=== PATIENT | male | born 1950 | race Caucasian/White ===

== ENCOUNTER 2021-03-13 10:55 | Emergency (ER) | payer OTHER, MEDICARE, BC ==
[2021-03-13] MEDS ORDERED: Sodium Chloride 0.9% 1,000 ML IV SCH (11:30)
--- NOTE | 2021-03-13 11:36 | EDM.PDOC ---
ED HPI GENERAL MEDICAL PROBLEM - General Chief Complaint: Neuro Symptoms/Deficits Stated Complaint: SLURRED SPEECH, LOW BLOOD PRESSURE Time Seen by Provider: 03/13/21 11:30 Source of Information: Reports: Patient, Family (Daughter and spouse.) History Limitations: Reports: Other (Patient does have impaired ability to answer questions and has dysarthric speech. Not truly any expressive aphasia.) - History of Present Illness INITIAL COMMENTS - FREE TEXT/NARRATIVE: 70-year-old male who is known to be a type II diabetic controlled with oral medications and history of hypertension and coronary artery disease having had a stent placement in the past. He remains on Plavix and antihypertensive medications. Patient has not noticed any difficulties with speech today until spoke with his grandson around 0800 hrs. and it was appreciated that his speech was somewhat garbled or dysarthric. Speech was slurred like he had been drinking. This seems to come and go throughout the morning. Once his daughter recognized the symptoms of possible strokes she brought him to the hospital. Blood sugar upon arrival in the ED was 176. Blood pressure is good at 126/70. Patient denies any changes in his visual acuity denies any headache no recent falls or closed head injuries. Family appreciated that he had trouble buttoning up his pants this morning. He is right-hand dominant. No troubles with gait. He did not drive a motor vehicle this morning. Onset: Today, Unknown/Unsure (Apparently he awoke with symptoms of dysarthria but it was not recognized until around 0800 hrs. this morning. Therefore we cannot clarify when he started to have dysarthric speech.) Onset Date: 03/13/21 Onset Time: 08:00 (Symptoms were first noticed by his grandson at 0800 hrs.) Duration: Hour(s):, Waxing/Waning Location: Reports: Other (Dysarthric speech.) Quality: Reports: Other (I merrily dysarthric speech. But family also recognized he had trouble buttoning up his pants this morning like he had some difficulty with fine motor coordination.) Severity: Mild Improves with: Reports: None Worsens with: Reports: None Context: Denies: Activity, Exercise, Lifting, Sick Contact, Trauma, Other Associated Symptoms: Denies: No Other Symptoms, Confusion, Chest Pain, Cough, cough w sputum, Diaphoresis, Fever/Chills, Headaches, Loss of Appetite, Nausea/Vomiting, Rash, Seizure, Shortness of Breath, Weakness Treatments COKE LOADER: Reports: Other (see below) (None.) - Related Data Allergies Allergy/AdvReac Type Severity Reaction Status Date / Time No Known Allergies Allergy Verified 03/13/21 11:12 Home Meds: Home Meds Cholecalciferol (Vitamin D3) [Vitamin D-3] 1,000 unit PO DAILY 05/02/14 [History] Colesevelam [Welchol] 1,875 mg PO BID 05/02/14 [History] Flaxseed Oil [Flax Oil] 1,300 mg PO DAILY 05/02/14 [History] Furosemide [Lasix] 40 mg PO DAILY 05/02/14 [History] Glucosamine [Glucosamine Sulfate] 1,500 mg PO DAILY 05/02/14 [History] Metoprolol Tartrate [Lopressor] 50 mg PO BID 05/02/14 [History] Rosuvastatin [Crestor] 10 mg PO DAILY 05/02/14 [History] glipiZIDE [Glipizide] 10 mg PO BID 05/02/14 [History] Acalabrutinib [Calquence] 100 mg PO BID 03/13/21 [History] Albuterol Sulfate 1 ampule IH Q6H PRN 03/13/21 [History] Albuterol Sulfate [Proair Digihaler] 2 puff IH Q6H PRN 03/13/21 [History] Apixaban [Eliquis] 5 mg PO BID 03/13/21 [History] Budesonide/Formoterol [Symbicort 160-4.5 MCG] 1 puff INH DAILY 03/13/21 [History] Clopidogrel [Plavix] 75 mg PO DAILY 03/13/21 [History] Famotidine 20 mg PO DAILY 03/13/21 [History] Insulin Aspart [NovoLOG] 7 unit SQ 1200 03/13/21 [History] Insulin Aspart [NovoLOG] 10 unit SQ BID 03/13/21 [History] Insulin Glarg,Human.Rec.Analog [Lantus] 22 unit SUBCUT DAILY 03/13/21 [History] Montelukast [Singulair] 10 mg PO DAILY 03/13/21 [History] Semaglutide [Ozempic] 1.5 ml SQ HOGUE 03/13/21 [History] Sodium Bicarbonate 1,300 mg PO DAILY 03/13/21 [History] Sodium Zirconium Cyclosilicate [Lokelma] 10 gm PO DAILY 03/13/21 [History] Tiotropium [Spiriva] 2 puff INH DAILY 03/13/21 [History] Vardenafil HCl 20 mg PO DAILY 03/13/21 [History] metFORMIN [Glucophage XR] 500 mg PO DAILY 03/13/21 [History] Past Medical History HEENT History: Reports: Other (See Below) Other HEENT History: wisdom teeth removed Cardiovascular History: Reports: High Cholesterol, Hypertension, Stents ([address] Last one was placed in March last year the one prior was a year and a half before that. No myocardial infarction apparently occurred.), Other (See Below) Endocrine/Metabolic History: Reports: Diabetes, Type II (Patient is been a type II diabetic for about 8 to 9 years.), Obesity/BMI 30+ Hematologic History: Reports: Other (See Below) (Patient does have CML. He has had it for about 12 years.) Oncologic (Cancer) History: Reports: Leukemia (Patient has CLL by history for the last 12 years. His oncologist is Dr. Torrez) - Infectious Disease History Infectious Disease History: Reports: Chicken Pox, Measles, Rubella - Past Surgical History HEENT Surgical History: Reports: Oral Surgery Cardiovascular Surgical History: Reports: Coronary Artery Bypass, Coronary Artery Stent Musculoskeletal Surgical History: Reports: ORIF Other Musculoskeletal Surgeries/Procedures:: bilateral ankles Social & Family History - Family History Family Medical History: No Pertinent Family History - Tobacco Use Tobacco Use Status *Q: Never Tobacco User - Recreational Drug Use Recreational Drug Use: No - Living Situation & Occupation Living situation: Reports: Occupation: Employed [employer] - Review of Systems Review Of Systems: See Below (Self-employed) Constitutional: Denies: Fever, Chills, Malaise, Weakness, Fatigue, Decreased Appetite, Weight Loss HEENT: Reports: Glasses (Only for reading.) Respiratory: Reports: Shortness of Breath, Cough. Denies: Wheezing, Pleuritic Chest Pain (No shortness of breath.), Sputum, Hemoptysis (Rare cough) Cardiovascular: Reports: Dyspnea on Exertion, Edema (Times. Sometimes in his feet.), Lightheadedness (Sometimes he believes from low heart rate and low blood pressure), Palpitations (Occasional aware of palpitations.). Denies: Chest P ain, Blood Pressure Problem, Claudication, Orthopnea Endocrine: Reports: Fatigue GI/Abdominal: Reports: No Symptoms : Reports: Frequency, Other (. X2 or 3.) Musculoskeletal: Reports: Back Pain Skin: Reports: Bruising (Bruises easily as he is on Plavix.) Neurological: Reports: Other (Dysarthric speech this morning. Apparently also having trouble buttoning up his pants.). Denies: Confusion, Dizziness, Headache, Numbness, Pre-Existing Deficit, Seizure, Syncope, Tingling, Tremors, Trouble Speaking, Difficulty Walking, Weakness, Change in Speech Psychiatric: Reports: No Symptoms Hematologic/Lymphatic: Reports: No Symptoms Immunologic: Reports: No Symptoms ED EXAM, NEURO - Physical Exam Exam: See Below Exam Limited By: No Limitations General Appearance: Alert, WD/WN, No Apparent Distress, Other (Family provides a lot of the answers. He is a little frustrated by not being able to communicate quite as normally as he should. Speech is dysarthric but he does not seem to have an expressive aphasia. His speech is understandable.) Eye Exam: Bilateral Eye: Normal Inspection (No blepharal pallor or scleral icterus.), PERRL (No gaze palsy.) Throat/Mouth: Normal Inspection, Normal Lips, Normal Teeth, Normal Oropharynx, Other (Uvula is in the midline) Head Exam: Atraumatic, Normocephalic Neck: Normal Inspection, Supple, Non-Tender, Full Range of Motion. No: Carotid Bruit, Lymphadenopathy (L), Lymphadenopathy (R) Respiratory/Chest: No Respiratory Distress, Lungs Clear, Normal Breath Sounds, No Accessory Muscle Use Cardiovascular: No Edema, No Gallop, No Murmur, No Rub, Bradycardia, Irregularly Irregular (Monitor shows that he is in a junctional rhythm with slightly wide QRS complex but no discernible P waves) GI/Abdominal: Normal Bowel Sounds, Soft, Non-Tender, No Organomegaly, No Abnormal Bruit, No Mass, Pelvis Stable, Other (Abdomen is obese. Firm to palpation no obvious organomegaly.) Neurological: Alert, Normal Dorsiflexion, CN II-XII Intact, Normal Plantar Flexion, Normal Gait, Normal Reflexes, No Motor/Sensory Deficits, Oriented x 3, Other (Normal rapid alternating movements. Normal [id number] examination. Negative Romberg sign. The only abnormality appears to be dysarthric speech. Could not identify any decreased motor power tone in any of his extremities. They were symmetrical). No: Babinski DTR: 0: Achilles (R), Achilles (L), 1+: Bicep (R), Bicep (L), Patella (R), Patella (L) Extremities: Normal Inspection, Normal Range of Motion, Non-Tender, No Pedal Edema Psychiatric: Flat Affect Skin Exam: Warm, Dry, Intact, Normal Color, No Rash #1 Interpretation EKG Date: 03/13/21 Time: 11:07 Rhythm: Other (No discernible P waves junctional rhythm at 51 beats a minute) Rate (Beats/Min): 51 [place]: LAD-Left [place] Deviation (-89 degrees) P-Wave: Absent (No discernible P waves.) QRS: Other (QRS complexes are mildly wide with a right bundle branch block and left anterior fascicular block pattern) ST-T: Other (T wave flattening is present in aVF only nonspecific finding) QT: Normal EKG Interpretation Comments: Abnormal ECG Course - Vital Signs Last Recorded V/S: Last Vital Signs Temp 36.2 C 03/13/21 11:04 Pulse 52 L 03/13/21 11:04 Resp 20 03/13/21 11:04 BP 126/70 03/13/21 11:04 Pulse Ox 97 03/13/21 11:04 - Orders/Labs/Meds Orders: Active Orders 24 hr Category Date Time Status Head wo Cont [CT] Stat Exams 03/13/21 11:26 Taken GLYCOSYLATED HEMOGLOBIN,HGBA1C [CHEM] Stat Lab 03/13/21 11:35 Received Labs: Laboratory Tests 03/13/21 03/13/21 03/13/21 Range/Units 11:13 11:35 11:35 WBC 33.15 H (4.23-9.07) K/mm3 RBC 3.56 L (4.63-6.08) M/mm3 Hgb 11.0 L D (13.7-17.5) gm/dl Hct 34.3 L (40.1-51.0) % MCV 96.3 H D (79.0-92.2) fl MCH 30.9 (25.7-32.2) pg MCHC 32.1 L (32.2-35.5) g/dl RDW Std Deviation 56.1 H (35.1-43.9) fL Plt Count 113 L (163-337) K/mm3 MPV 9.2 L (9.4-12.3) fl Neutrophils % (Manual) 13 L (40-60) % Band Neutrophils % 3 (0-10) % Lymphocytes % (Manual) 56 H (20-40) % Atypical Lymphs % 25 % Monocytes % (Manual) 2 (2-10) % Eosinophils % (Manual) 1 (0.8-7.0) % Basophils % (Manual) 0 L (0.2-1.2) Platelet Estimate Decreased Plt Morphology Comment Normal Anisocytosis 3+ marked Macrocytosis 2+ moderate RBC Morph Comment Abnormal PT 12.0 (9.7-12.0) SECONDS INR 1.12 APTT 26.4 (21.7-31.4) SECONDS Sodium (136-145) mEq/L Potassium (3.5-5.1) mEq/L Chloride (98-107) mEq/L Carbon Dioxide (21-32) mEq/L Anion Gap (5-15) BUN (7-18) mg/dL Creatinine (0.7-1.3) mg/dL Est Cr Clr Drug Dosing mL/min Estimated GFR (MDRD) (>60) mL/min BUN/Creatinine Ratio (14-18) Glucose (83-115) mg/dL POC Glucose 176 H (70-99) mg/dL Calcium (8.5-10.1) mg/dL Magnesium (1.8-2.4) mg/dl Total Bilirubin (0.2-1.0) mg/dL AST (15-37) U/L ALT (16-63) U/L Alkaline Phosphatase (46-116) U/L Troponin I (0.00-0.056) ng/mL C-Reactive Protein (<1.0) mg/dL NT-Pro-B Natriuret Pep (0-125) pg/mL Total Protein (6.4-8.2) g/dl Albumin (3.4-5.0) g/dl Globulin gm/dL Albumin/Globulin Ratio (1-2) Triglycerides (<150) mg/dL Cholesterol (<200) mg/dL LDL Cholesterol Direct (<100) mg/dL HDL Cholesterol (40-59) mg/dL TSH 3rd Generation (0.358-3.74) uIU/mL Urine Color (Yellow) Urine Appearance (Clear) Urine pH (5.0-8.0) Ur Specific [place] (1.005-1.030) Urine Protein (Negative) Urine Glucose (UA) (Negative) Urine Ketones (Negative) Urine Occult Blood (Negative) Urine Nitrite (Negative) Urine Bilirubin (Negative) Urine Urobilinogen (0.2-1.0) Ur Leukocyte Esterase (Negative) U Hyaline Cast (Auto) (0-5) /lpf Urine RBC (0-5) /hpf Urine WBC (0-5) /hpf Ur Epithelial Cells (0-5) /hpf Urine Bacteria (FEW) /hpf Urine Mucus (FEW) /hpf Ethyl Alcohol (0.00) gm% SARS-CoV-2 RNA (NEVIN) (NEGATIVE) 03/13/21 03/13/21 03/13/21 Range/Units 11:35 11:35 11:35 WBC (4.23-9.07) K/mm3 RBC (4.63-6.08) M/mm3 Hgb (13.7-17.5) gm/dl Hct (40.1-51.0) % MCV (79.0-92.2) fl MCH (25.7-32.2) pg MCHC (32.2-35.5) g/dl RDW Std Deviation (35.1-43.9) fL Plt Count (163-337) K/mm3 MPV (9.4-12.3) fl Neutrophils % (Manual) (40-60) % Band Neutrophils % (0-10) % Lymphocytes % (Manual) (20-40) % Atypical Lymphs % % Monocytes % (Manual) (2-10) % Eosinophils % (Manual) (0.8-7.0) % Basophils % (Manual) (0.2-1.2) Platelet Estimate Plt Morphology Comment Anisocytosis Macrocytosis RBC Morph Comment PT (9.7-12.0) SECONDS INR APTT (21.7-31.4) SECONDS Sodium 140 (136-145) mEq/L Potassium 4.6 (3.5-5.1) mEq/L Chloride 103 (98-107) mEq/L Carbon Dioxide 26 (21-32) mEq/L Anion Gap 15.6 H (5-15) BUN 32 H (7-18) mg/dL Creatinine 2.2 H (0.7-1.3) mg/dL Est Cr Clr Drug Dosing 32.33 mL/min Estimated GFR (MDRD) 30 (>60) mL/min BUN/Creatinine Ratio 14.5 (14-18) Glucose 179 H (83-115) mg/dL POC Glucose (70-99) mg/dL Calcium 9.2 (8.5-10.1) mg/dL Magnesium 1.8 (1.8-2.4) mg/dl Total Bilirubin 1.1 H (0.2-1.0) mg/dL AST 27 (15-37) U/L ALT 29 (16-63) U/L Alkaline Phosphatase 443 H (46-116) U/L Troponin I < 0.017 (0.00-0.056) ng/mL C-Reactive Protein < 0.2 (<1.0) mg/dL NT-Pro-B Natriuret Pep 1530 H (0-125) pg/mL Total Protein 6.7 (6.4-8.2) g/dl Albumin 3.8 (3.4-5.0) g/dl Globulin 2.9 gm/dL Albumin/Globulin Ratio 1.3 (1-2) Triglycerides 295 H (<150) mg/dL Cholesterol 116 (<200) mg/dL LDL Cholesterol Direct 58 (<100) mg/dL HDL Cholesterol 20.0 L (40-59) mg/dL TSH 3rd Generation 2.399 (0.358-3.74) uIU/mL Urine Color (Yellow) Urine Appearance (Clear) Urine pH (5.0-8.0) Ur Specific [place] (1.005-1.030) Urine Protein (Negative) Urine Glucose (UA) (Negative) Urine Ketones (Negative) Urine Occult Blood (Negative) Urine Nitrite (Negative) Urine Bilirubin (Negative) Urine Urobilinogen (0.2-1.0) Ur Leukocyte Esterase (Negative) U Hyaline Cast (Auto) (0-5) /lpf Urine RBC (0-5) /hpf Urine WBC (0-5) /hpf Ur Epithelial Cells (0-5) /hpf Urine Bacteria (FEW) /hpf Urine Mucus (FEW) /hpf Ethyl Alcohol 0.00 (0.00) gm% SARS-CoV-2 RNA (NVEIN) (NEGATIVE) 03/13/21 03/13/21 Range/Units 12:45 12:45 WBC (4.23-9.07) K/mm3 RBC (4.63-6.08) M/mm3 Hgb (13.7-17.5) gm/dl Hct (40.1-51.0) % MCV (79.0-92.2) fl MCH (25.7-32.2) pg MCHC (32.2-35.5) g/dl RDW Std Deviation (35.1-43.9) fL Plt Count (163-337) K/mm3 MPV (9.4-12.3) fl Neutrophils % (Manual) (40-60) % Band Neutrophils % (0-10) % Lymphocytes % (Manual) (20-40) % Atypical Lymphs % % Monocytes % (Manual) (2-10) % Eosinophils % (Manual) (0.8-7.0) % Basophils % (Manual) (0.2-1.2) Platelet Estimate Plt Morphology Comment Anisocytosis Macrocytosis RBC Morph Comment PT (9.7-12.0) SECONDS INR APTT (21.7-31.4) SECONDS Sodium (136-145) mEq/L Potassium (3.5-5.1) mEq/L Chloride (98-107) mEq/L Carbon Dioxide (21-32) mEq/L Anion Gap (5-15) BUN (7-18) mg/dL Creatinine (0.7-1.3) mg/dL Est Cr Clr Drug Dosing mL/min Estimated GFR (MDRD) (>60) mL/min BUN/Creatinine Ratio (14-18) Glucose (83-115) mg/dL POC Glucose (70-99) mg/dL Calcium (8.5-10.1) mg/dL Magnesium (1.8-2.4) mg/dl Total Bilirubin (0.2-1.0) mg/dL AST (15-37) U/L ALT (16-63) U/L Alkaline Phosphatase (46-116) U/L Troponin I (0.00-0.056) ng/mL C-Reactive Protein (<1.0) mg/dL NT-Pro-B Natriuret Pep (0-125) pg/mL Total Protein (6.4-8.2) g/dl Albumin (3.4-5.0) g/dl Globulin gm/dL Albumin/Globulin Ratio (1-2) Triglycerides (<150) mg/dL Cholesterol (<200) mg/dL LDL Cholesterol Direct (<100) mg/dL HDL Cholesterol (40-59) mg/dL TSH 3rd Generation (0.358-3.74) uIU/mL Urine Color Yellow (Yellow) Urine Appearance Clear (Clear) Urine pH 6.0 (5.0-8.0) Ur Specific [place] 1.020 (1.005-1.030) Urine Protein 1+ H (Negative) Urine Glucose (UA) Negative (Negative) Urine Ketones Negative (Negative) Urine Occult Blood Negative (Negative) Urine Nitrite Negative (Negative) Urine Bilirubin Negative (Negative) Urine Urobilinogen 0.2 (0.2-1.0) Ur Leukocyte Esterase Negative (Negative) U Hyaline Cast (Auto) 0-5 (0-5) /lpf Urine RBC 0-5 (0-5) /hpf Urine WBC Not seen (0-5) /hpf Ur Epithelial Cells Not seen (0-5) /hpf Urine Bacteria Few (FEW) /hpf Urine Mucus Few (FEW) /hpf Ethyl Alcohol (0.00) gm% SARS-CoV-2 RNA (NEVIN) Negative (NEGATIVE) Meds: Medications Discontinued Medications Generic Name Dose Route Start Last Admin Trade Name Freq PRN Reason Stop Dose Admin Sodium Chloride 1,000 mls @ 100 mls/hr 03/13/21 11:30 03/13/21 12:24 Normal Saline IV 100 mls/hr ASDIRECTED KAYLEE Administration - Radiology Interpretation Free Text/Narrative:: 70-year-old male presents to the ED with dysarthric speech that was first noted by his grandson at 0800 hrs. this morning. It is suspect that he awoke with s ymptoms but no unrecognized dysarthric speech. Denies headache. The remainder of his neuro exam is completely normal. His daughter felt that he was having trouble buttoning up his pants this morning he is right-hand dominant but I could find no weakness or problems with dexterity in his right hand. He did have trouble reading during the NIH scale exam. NIH score of 3. - Re-Assessments/Exams Free Text/Narrative Re-Assessment/Exam: 03/13/21 12:08 scan of the head has been done without contrast. Ventricles along with basal cisterns and sulci over the convexities are slightly prominent. Very minimal diminished density is noted within the periventricular white matter compatible with small slight small vessel ischemic demyelination change. Small old lacunar infarct is noted within the posterior left basal ganglia. Mild generalized atrophy is seen within the cerebellum no evidence of intracranial hemorrhage no acute parenchymal changes are appreciated. Bone window settings were reviewed. Visualized mastoid sinuses and visualized paranasal sinuses showed nothing acute. No acute calvarial abnormality is appreciated. Atherosclerotic calcification is seen within the vertebral arteries. Ideally an MRI should be completed but there is no availability today. I will wait and see how his renal function is and possibly pursue angiogram of the head and neck. 03/13/21 12:29 White count is markedly elevated at 33.15. On CLL for about 12 years. Hemoglobin is 11.0 with hematocrit of 34.3. MCV is mildly elevated 96.3. Platelet count is low at 113,000. PT is 12.0 with an INR of 1.12. PTT is 26.4. Sodium is 140 with a potassium of 4.6 chloride is 103 with a bicarb of 26. Anion gap is elevated slightly at 15.6. BUN is 32 with a creatinine of 2.2 and a GFR of only 30 indicating is not a candidate for contrast intravenously. Glucose is elevated at 179 he is a type II diabetic. Bedside glucose was 176. Calcium is 9.2 magnesium is 1.8 bilirubin is 1.1 AST is 27 ALT is 29. Alk phosphatase is elevated at 443. A GGT will be ordered to see if this is coming from his liver or other source. Troponin I is less than 0.017 C-reactive protein is less than 0.2 BNP is 1530. Total protein is 6.7 with an albumin fraction of 3.8 globulin is 2.9 triglycerides are elevated at 295 total cholesterol is 116 with an LDL of 58 and an HDL of 20. 03/13/21 12:52 Differential reveals that he has 13% neutrophils 3% bands 56% lymphocytes and 25% atypical lymphs. 2% monocytes 1% eosinophils and no basophils. Permission was not offered to me during the primary interview. He is cared for by Dr. Torrez whom he is seeing in [place] tomorrow. With him being on Eliquis and Plavix I feel at this time there is nothing else really to add o ther than further investigations by way of MRI which is not available to us today. I will speak with neurology in [place] to see if they have any other opinions. 03/13/21 13:41 I have had a call into 1 call service at [facility] in [place] for over an hour and have not been able to get a return phone call. I was going to speak to neurology services to see if they had any thing to offer in terms of further evaluation by way of MRA of head neck to see if there is any lesion that is potentially intervene able. At this time his speech is improved. I doubt that there is anything further to add in terms of treatment plan since he is on Eliquis 5 mg twice daily and Plavix 75 mg daily. He is maximized out as far as anticoagulants and antiplatelet therapy. His cholesterol is normal. His blood pressure is normal. Chances are that he suffered a plaque disruption from arch of aorta or from internal carotid artery that caused his current symptom complex today. He has an appointment with Dr. Cole oncologist tomorrow for first treatment for his chronic lymphocytic leukemia and at this point time I see no problems with proceeding without infusion therapy. Copies of the notes will be given to the patient and to the patient's [facility] not have [facility] fax number. They will also have a copy for Dr. Cole tomorrow particularly in regard to the lab work done today. 03/13/21 14:35 week with Too through the 1 call service at [facility] in [place] and then --from the department of neurology and he is excepted care. He agrees that some imaging needs to be done and the only thing available would be MRA as CTA is contraindicated due to poor renal function. He wishes the patient to come to the emergency room at [facility] in [place] as soon as possible to tentatively arrange for MRA of the head neck. Patient will be going by private vehicle since ambulance availability is sparse at this time Departure - Departure Time of Disposition: 14:37 Disposition: DC/Tfer to Acute Hospital 02 Condition: Fair Clinical Impression: Dysarthria Cerebrovascular accident Qualifiers: CVA mechanism: unspecified Qualified Code(s): I63.9 - Cerebral infarction, unspecified - Discharge Information *PRESCRIPTION DRUG MONITORING PROGRAM REVIEWED*: Not Applicable *COPY OF PRESCRIPTION DRUG MONITORING REPORT IN PATIENT MECHE: Not Applicable Referrals: Kenisha Gloria MD [Primary Care Provider] - Forms: ED Department Discharge Additional Instructions: Evaluation in the emergency room this morning in regards to development of dysarthria which means slurred speech which usually means problems making the tongue and throat muscles work properly to form speech. Since the symptoms have lasted at least 6 hours we consider this a mild stroke. You are already on [facility] medical treatment for stroke by being on Eliquis 5 mg twice daily and Plavix 75 mg daily with a normal blood pressure and normal cholesterol levels. You need to travel to the emergency department at [facility] in [place] to see Dr. Manuel--is the accepting physician. Neurologist on-call was and he will become involved in your care as well. The plan is to try and have an MRA done of your head and neck to look for any blockages that are amenable to treatment with interventional radiology or interventional neurosurgery. This is in an effort to try and prevent a larger stroke from occurring. Sepsis Event Note (ED) - Evaluation Sepsis Screening Result: No Definite Risk - Focused Exam Vital Signs: Vital Signs Temp Pulse Resp BP Pulse Ox 03/13/21 11:04 36.2 C 52 L 20 126/70 97 - My Orders Last 24 Hours: My Active Orders 03/13/21 11:26 Head wo Cont [CT] Stat 03/13/21 11:35 GLYCOSYLATED HEMOGLOBIN,HGBA1C [CHEM] Stat - Assessment/Plan Last 24 Hours: My Active Orders 03/13/21 11:26 Head wo Cont [CT] Stat 03/13/21 11:35 GLYCOSYLATED HEMOGLOBIN,HGBA1C [CHEM] Stat
--- NOTE | 2021-03-13 13:31 | CR ---
Chest: Portable view of the chest was obtained. Comparison: No prior study. Heart is slightly enlarged. Previous sternotomy is noted. Slight pleural thickening is noted within the lateral inferior chest on both sides. Lungs otherwise are clear. Bony structures show nothing acute. Impression: 1. Findings as noted above. 2. Nothing acute is appreciated. Diagnostic code #2
[2021-03-13 18:55] LABS: HEMOGLOBIN A1C 7.5 %
--- NOTE | 2021-03-14 08:41 | CT ---
Head CT Technique: Multiple axial sections to the brain were obtained. Reconstructed coronal and sagittal images were also obtained. Comparison: No prior intracranial imaging is available. Findings: Ventricles along with basal cisterns and sulci over the convexities are slightly prominent. Very minimal diminished density is noted within the periventricular white matter compatible with slight small vessel ischemic demyelination change. Small old lacunar infarct is noted within posterior left basal ganglia. Mild generalized atrophy is seen within the cerebellum. No evidence of intracranial hemorrhage. No acute parenchymal change is appreciated. Bone window settings were reviewed. Visualized mastoid sinuses and visualized paranasal sinuses show nothing acute. No acute calvarial abnormality is appreciated. Atherosclerotic calcification is seen within the vertebral vessels. Impression: 1. Mild senescent change. 2. No acute intracranial abnormality is appreciated. Note: Please correlate if patient's symptoms warrant further evaluation by brain MRI. Diagnostic code #2 MTDD
== END 2021-03-13 14:50 ==
LOC: JD.ED 10:55
DX: I69.322 Dysarthria following cerebral infarction (principal); I45.10 Unspecified right bundle-branch block; I44.4 Left anterior fascicular block; D72.829 Elevated white blood cell count, unspecified; E78.00 Pure hypercholesterolemia, unspecified; I10 Essential (primary) hypertension; E11.9 Type 2 diabetes mellitus without complications; E66.9 Obesity, unspecified; Z68.33 Body mass index [BMI] 33.0-33.9, adult; Z79.4 Long term (current) use of insulin; Z79.01 Long term (current) use of anticoagulants; Z79.02 Long term (current) use of antithrombotics/antiplatelets; Z79.899 Other long term (current) drug therapy; Z20.822 Contact with and (suspected) exposure to COVID-19
CPT/HCPCS: 36415; 70450; 71045; 80053; 80307; 81001; 82465; 82947; 83036; 83718; 83721; 83735; 83880; 84443; 84478; 84484; 85007; 85027; 85610; 85730; 86140; 87635; 93005; 99285; J7030; 93010; U0002

== ENCOUNTER 2021-04-18 20:02 | Emergency (ER) | payer OTHER, MEDICARE, BC ==
--- NOTE | 2021-04-18 21:01 | EDM.PDOC ---
<Alvino Silva - Last Filed: 04/19/21 11:40> ED HPI GENERAL MEDICAL PROBLEM - General Chief Complaint: Back Pain or Injury Stated Complaint: BACK PAIN Time Seen by Provider: 04/18/21 20:16 - Related Data Allergies Allergy/AdvReac Type Severity Reaction Status Date / Time No Known Allergies Allergy Verified 03/13/21 11:12 Home Meds: Home Meds Cholecalciferol (Vitamin D3) [Vitamin D-3] 5,000 mcg PO DAILY 05/02/14 [History] Colesevelam [Welchol] 1,875 mg PO BID 05/02/14 [History] Flaxseed Oil [Flax Oil] 1,300 mg PO DAILY 05/02/14 [History] Furosemide [Lasix] 40 mg PO DAILY 05/02/14 [History] Glucosamine [Glucosamine Sulfate] 1,500 mg PO DAILY 05/02/14 [History] Metoprolol Tartrate [Lopressor] 50 mg PO BID 05/02/14 [History] Rosuvastatin [Crestor] 10 mg PO DAILY 05/02/14 [History] glipiZIDE [Glipizide] 10 mg PO BID 05/02/14 [History] Acalabrutinib [Calquence] 100 mg PO BID 03/13/21 [History] Albuterol Sulfate [Proair Digihaler] 2 puff IH Q4H PRN 03/13/21 [History] Budesonide/Formoterol [Symbicort 160-4.5 MCG] 2 puff INH BID 03/13/21 [History] Famotidine 20 mg PO DAILY 03/13/21 [History] Insulin Glarg,Human.Rec.Analog [Lantus] 22 unit SUBCUT DAILY 03/13/21 [History] Montelukast [Singulair] 10 mg PO DAILY 03/13/21 [History] Semaglutide [Ozempic] 1.5 ml SQ ASDIRECTED 03/13/21 [History] Sodium Bicarbonate 1,300 mg PO BID 03/13/21 [History] Sodium Zirconium Cyclosilicate [Lokelma] 10 gm PO DAILY 03/13/21 [History] Tiotropium [Spiriva] 2 puff INH DAILY 03/13/21 [History] Vardenafil HCl 20 mg PO ASDIRECTED PRN 03/13/21 [History] metFORMIN [Glucophage XR] 500 mg PO DAILY 03/13/21 [History] Atovaquone 750 mg PO DAILY 04/19/21 [History] allopurinoL [Zyloprim] 200 mg PO DAILY 04/19/21 [History] levoFLOXacin [Levaquin] 500 mg PO DAILY #9 tab 04/19/21 [Rx] Course - Re-Assessments/Exams Free Text/Narrative Re-Assessment/Exam: 04/19/21 11:40 we are waiting for transfer to [facility] in [place] as had been prearranged by Dr. Craig overnight. It was my understanding the patient has been accepted to that facility and they would call once a bed was available. However we identified after phone call at 1030 this morning that he was not formally excepted for care in the hospital which is full. His case was reviewed by in flight refueling craftsman Dr. Lawrence and she felt from a cardiology point of view that they would not be taking him to [facility] or providing any area cardiac care. Dr. Cole is a nurse practitioner reviewed his white count and felt that it was only slightly L more elevated than it was 2 weeks ago. It is felt that he has an occult infection most likely in his lung and they suggested continuing antibiotic therapy orally at home. Patient will therefore be placed on Levaquin 500 mg once daily for another 9 days. Due to his increased BNP and increased heart failure he will be placed on Lasix 40 in the morning and 20 mg in the p.m. He has been on 40 mg in the morning only. Case was discussed with family members and the patient will be discharged home they will make follow-up arrangements to see Dr. Hernandez in clinic and Dr. Cole is scheduled appointment is May 02. Of course they will return to the hospital if there is any further problems Departure - Departure Time of Disposition: 11:28 Disposition: Home, Self-Care 01 Clinical Impression: Elevated troponin I level, Elevated brain natriuretic peptide (BNP) level, Chronic renal insufficiency, Hyperglycemia due to type 2 diabetes mellitus, CLL (chronic lymphocytic leukemia), Fever, Dyspnea - Discharge Information Prescriptions: levoFLOXacin [Levaquin] 500 mg PO DAILY #9 tab Referrals: Kenisha Gloria MD [Primary Care Provider] - Ayush Torrez MD [Ordering Only Provider] - Zeinab Acosta Om, MD [Ordering Only Provider] - Roseanne Ramirez MD [Ordering Only Provider] - Mack Epperson MD [Ordering Only Provider] - Forms: ED Department Discharge Additional Instructions: Evaluation in the emergency room last evening by Dr. Craig after you spiked a temperature of 101.6 at home. Associated chills prior to developing high fever. Chronic history of chronic lymphocytic leukemia with mildly elevated white blood cell count as compared to last count done 2 weeks ago. You are to follow- up with Dr. Cole the oncologist or oil truck driver on May 02 in this regard. Lab test also revealed that you are retaining a bit more fluid in your lungs which may use somewhat more short of breath last night. Improved with Lasix intravenously. You will need to continue Lasix 40 mg in the morning and I would suggest taking it this afternoon again when you get home. I would suggest using Lasix 40 mg in the morning and 20 mg around 1400 hrs. every day to help reduce the amount of fluid retention in your lungs. I suspect there is a infection in the lung that we cannot see on x-ray at this point time. You will need to take antibiotic Levaquin 500 mg once daily for another 9 days to clear up infection. No other medication changes are to be made at this time. Of course return to the hospital if you continue to feel unwell or develop increased shortness of breath. You are to phone and make an appointment to follow-up with Dr. Hernandez your in flight refueling craftsman and tentatively he will can see you here in [place] when he comes out next visit. <Roger Craig - Last Filed: 04/19/21 18:30> ED HPI GENERAL MEDICAL PROBLEM - General Source of Information: Reports: Patient, Family (, daughter) History Limitations: Reports: No Limitations - History of Present Illness INITIAL COMMENTS - FREE TEXT/NARRATIVE: Mr. Gonsalez is a very pleasant 70-year-old gentleman who now presents the ED with a fever and dyspnea. He states that he has had upper back pain for many years, and a cough productive of yellowish sputum with congestion for more than 1 year. He states that he was hospitalized about 6 weeks ago for pneumonia. At that time, he tested negative for COVID-19. He was then hospitalized again about 3 weeks ago for an intracranial hemorrhage. No surgery was required, but his anticoagulants were discontinued. He states that he developed a fever of 101 degrees at home today, then dyspnea, even at rest, this afternoon. No recent chest pain, palpitations, nausea, vomiting, constipation, diarrhea, or urinary symptoms. The patient states that he did not take any [id number] antipyretics today. Here in the ED tonight, the patient is found to be mildly tachypneic at 26 rpm, with a fever of 100.7 degrees and an oxygen saturation of 94% on room air. He appears to be comfortable, in no acute distress. Prior to today, the patient denies having a recent fever, chills, sore throat, ear pain, nasal or sinus congestion, dyspnea, chest pain, palpitations, nausea, vomiting, constipation, diarrhea, abdominal pain, urinary symptoms, recent weight gain or weight loss, recent bloody bowel movements or black bowel movements, recent joint aches, headaches, or rashes. The patient's PCP is Dr. Kenisha Gloria, at the [facility]. His Oncologist is Dr. Ayush Torrez. His Infectious Disease specialist is Dr. Roseanne Ramirez. His Lcac Radar Operator/Navigator is Dr. Zeinab Acosta. His Drama Critic is Dr. Mack Menchaca, in [place]. Upper Back Pain Score (Numeric/FACES): 6 Past Medical History Cardiovascular History: Reports: CAD, Heart Failure, High Cholesterol, Hypertension Respiratory History: Reports: COPD (PFT-proven) Genitourinary History: Reports: Chronic Renal Insuffiency Neurological History: Reports: Other (See Below) (Intracranial hemorrhage 03/13/2021) Endocrine/Metabolic History: Reports: Diabetes, Type II, Obesity/BMI 30+ Immunologic History: Reports: Other (See Below) (Agammaglobulinemia) Oncologic (Cancer) History: Reports: Leukemia (CLL), Squamous Cell Carcinoma (left ear, excised) - Infectious Disease History Infectious Disease History: Reports: Chicken Pox, Measles, Rubella - Past Surgical History HEENT Surgical History: Reports: Oral Surgery (dental extractions) Cardiovascular Surgical History: Reports: Coronary Artery Bypass (x 4 vessel, around 2009 or 2011), Coronary Artery Stent (x 2), Other (See Below) (Coronary angiogram x 3) Musculoskeletal Surgical History: Reports: ORIF (bilateral ankles, left forearm) Oncologic Surgical History: Reports: Other (See Below) (Excision of SCC from left ear) Social & Family History - Tobacco Use Tobacco Use Status *Q: Never Tobacco User - Caffeine Use Caffeine Use: Reports: Coffee, Soda, Tea - Alcohol Use Alcohol Use History: Yes Alcohol Use Frequency: Socially (occasionally to excess) - Recreational Drug Use Recreational Drug Use: No - Living Situation & Occupation Living situation: Reports: , with Spouse Occupation: Retired ED ROS GENERAL - Review of Systems Review Of Systems: Comprehensive ROS is negative, except as noted in HPI. ED EXAM, GENERAL - Physical Exam Exam: See Below Exam Limited By: No Limitations General Appearance: Alert, WD/WN, No Apparent Distress Eye Exam: Bilateral Eye: EOMI, Normal Inspection Ears: Normal External Exam, Hearing Grossly Normal Nose: Normal Inspection Throat/Mouth: Normal Inspection, Normal Lips, Normal Voice, No Airway Compromise Head: Atraumatic, Normocephalic Neck: Normal Inspection, Full Range of Motion Respiratory/Chest: No Respiratory Distress, No Accessory Muscle Use, Rhonchi (primarily expiratory, across all lung kim. Did not significantly improve following an intentional cough.). No: Decreased Breath Sounds, Wheezing, Stridor, Prolonged Expiration Cardiovascular: Normal Peripheral Pulses, Regular Rate, Rhythm, No Gallop, No JVD, No Murmur, No Rub Peripheral Pulses: 3+: Radial (L), Radial (R) GI/Abdominal: Normal Bowel Sounds, Soft, Non-Tender, No Organomegaly, No Distention, No Abnormal Bruit, No Mass Back Exam: Normal Inspection, Full Range of Motion, NT Extremities: Normal Inspection, Normal Range of Motion, Normal Capillary Refill Neurological: Alert, Oriented, No Motor/Sensory Deficits, Memory Loss Remote Events Psychiatric: Normal Affect Skin Exam: Warm (feels febrile), Dry, Intact, Normal Color, No Rash #1 Interpretation EKG Date: 04/18/21 Time: 21:18 Rhythm: Other (Junctional rhythm) Rate (Beats/Min): 93 [place]: Other (Extreme axis) P-Wave: Absent QRS: RBBB (+ LAFB) ST-T: Depressed (II, V1-V6, w/ T-wave inversion in V2 only) QT: Prolonged (QTc 543 ms) Comparison: Change From Previous EKG (QTc prolongation new since 03/13/2021) Course - Vital Signs Last Recorded V/S: Last Vital Signs Temp 36.9 C 04/19/21 10:30 Pulse 61 04/19/21 11:34 Resp 13 04/19/21 11:34 BP 109/70 04/19/21 11:34 Pulse Ox 95 04/19/21 11:34 - Orders/Labs/Meds Orders: Active Orders 24 hr Category Date Time Status CULTURE BLOOD [BC] Stat Lab 04/18/21 21:25 Received CULTURE BLOOD [BC] Stat Lab 04/18/21 21:25 Received Blood Culture x2 Reflex Set [OM.PC] Stat Oth 04/18/21 20:54 Ordered Labs: Laboratory Tests 04/18/21 04/18/21 04/18/21 Range/Units 20:56 21:25 21:25 WBC 49.29 H (4.23-9.07) K/mm3 RBC 3.04 L (4.63-6.08) M/mm3 Hgb 9.6 L (13.7-17.5) gm/dl Hct 31.6 L (40.1-51.0) % MCV 103.9 H D (79.0-92.2) fl MCH 31.6 (25.7-32.2) pg MCHC 30.4 L (32.2-35.5) g/dl RDW Std Deviation 61.0 H (35.1-43.9) fL Plt Count 82 L (163-337) K/mm3 MPV 10.3 (9.4-12.3) fl Neutrophils % (Manual) 22 L (40-60) % Band Neutrophils % 0 (0-10) % Lymphocytes % (Manual) 42 H (20-40) % Atypical Lymphs % 9 % Monocytes % (Manual) 24 H (2-10) % Eosinophils % (Manual) 0 L (0.8-7.0) % Basophils % (Manual) 0 L (0.2-1.2) Blast Cells % 3 Platelet Estimate Decreased Plt Morphology Comment See note Hypochromasia 1+ slight Anisocytosis 2+ moderate Macrocytosis 2+ moderate RBC Morph Comment Not Reportable D-Dimer, Quantitative 0.50 (0.19-0.50) mg/L Sodium (136-145) mEq/L Potassium (3.5-5.1) mEq/L Chloride (98-107) mEq/L Carbon Dioxide (21-32) mEq/L Anion Gap (5-15) BUN (7-18) mg/dL Creatinine (0.7-1.3) mg/dL Est Cr Clr Drug Dosing mL/min Estimated GFR (MDRD) (>60) mL/min BUN/Creatinine Ratio (14-18) Glucose (70-99) mg/dL POC Glucose (70-99) mg/dL Lactic Acid (0.4-2.0) mmol/L Calcium (8.5-10.1) mg/dL Magnesium (1.8-2.4) mg/dL Total Bilirubin (0.2-1.0) mg/dL AST (15-37) U/L ALT (16-63) U/L Alkaline Phosphatase (46-116) U/L Troponin I (0.00-0.056) ng/mL NT-Pro-B Natriuret Pep (0-125) pg/mL Total Protein (6.4-8.2) g/dl Albumin (3.4-5.0) g/dl Globulin gm/dL Albumin/Globulin Ratio (1-2) Influenza Type A RNA Negative (NEGATIVE) Influenza Type B RNA Negative (NEGATIVE) SARS-CoV-2 RNA (NEVIN) Negative (NEGATIVE) 04/18/21 04/18/21 04/18/21 Range/Units 21:25 21:25 21:25 WBC (4.23-9.07) K/mm3 RBC (4.63-6.08) M/mm3 Hgb (13.7-17.5) gm/dl Hct (40.1-51.0) % MCV (79.0-92.2) fl MCH (25.7-32.2) pg MCHC (32.2-35.5) g/dl RDW Std Deviation (35.1-43.9) fL Plt Count (163-337) K/mm3 MPV (9.4-12.3) fl Neutrophils % (Manual) (40-60) % Band Neutrophils % (0-10) % Lymphocytes % (Manual) (20-40) % Atypical Lymphs % % Monocytes % (Manual) (2-10) % Eosinophils % (Manual) (0.8-7.0) % Basophils % (Manual) (0.2-1.2) Blast Cells % Platelet Estimate Plt Morphology Comment Hypochromasia Anisocytosis Macrocytosis RBC Morph Comment D-Dimer, Quantitative (0.19-0.50) mg/L Sodium 136 (136-145) mEq/L Potassium 4.0 (3.5-5.1) mEq/L Chloride 99 (98-107) mEq/L Carbon Dioxide 23 (21-32) mEq/L Anion Gap 18.0 H (5-15) BUN 36 H (7-18) mg/dL Creatinine 2.0 H (0.7-1.3) mg/dL Est Cr Clr Drug Dosing 35.56 mL/min Estimated GFR (MDRD) 33 (>60) mL/min BUN/Creatinine Ratio 18.0 (14-18) Glucose 235 H (70-99) mg/dL POC Glucose (70-99) mg/dL Lactic Acid 1.7 (0.4-2.0) mmol/L Calcium 9.5 (8.5-10.1) mg/dL Magnesium 1.8 (1.8-2.4) mg/dL Total Bilirubin 2.4 H (0.2-1.0) mg/dL AST 31 (15-37) U/L ALT 25 (16-63) U/L Alkaline Phosphatase 663 H (46-116) U/L Troponin I 0.140 H* (0.00-0.056) ng/mL NT-Pro-B Natriuret Pep 6570 H (0-125) pg/mL Total Protein 7.2 (6.4-8.2) g/dl Albumin 3.3 L (3.4-5.0) g/dl Globulin 3.9 gm/dL Albumin/Globulin Ratio 0.9 L (1-2) Influenza Type A RNA (NEGATIVE) Influenza Type B RNA (NEGATIVE) SARS-CoV-2 RNA (NEVIN) (NEGATIVE) 04/18/21 04/19/21 Range/Units 23:53 07:18 WBC (4.23-9.07) K/mm3 RBC (4.63-6.08) M/mm3 Hgb (13.7-17.5) gm/dl Hct (40.1-51.0) % MCV (79.0-92.2) fl MCH (25.7-32.2) pg MCHC (32.2-35.5) g/dl RDW Std Deviation (35.1-43.9) fL Plt Count (163-337) K/mm3 MPV (9.4-12.3) fl Neutrophils % (Manual) (40-60) % Band Neutrophils % (0-10) % Lymphocytes % (Manual) (20-40) % Atypical Lymphs % % Monocytes % (Manual) (2-10) % Eosinophils % (Manual) (0.8-7.0) % Basophils % (Manual) (0.2-1.2) Blast Cells % Platelet Estimate Plt Morphology Comment Hypochromasia Anisocytosis Macrocytosis RBC Morph Comment D-Dimer, Quantitative (0.19-0.50) mg/L Sodium (136-145) mEq/L Potassium (3.5-5.1) mEq/L Chloride (98-107) mEq/L Carbon Dioxide (21-32) mEq/L Anion Gap (5-15) BUN (7-18) mg/dL Creatinine (0.7-1.3) mg/dL Est Cr Clr Drug Dosing mL/min Estimated GFR (MDRD) (>60) mL/min BUN/Creatinine Ratio (14-18) Glucose (70-99) mg/dL POC Glucose 134 H (70-99) mg/dL Lactic Acid (0.4-2.0) mmol/L Calcium (8.5-10.1) mg/dL Magnesium (1.8-2.4) mg/dL Total Bilirubin (0.2-1.0) mg/dL AST (15-37) U/L ALT (16-63) U/L Alkaline Phosphatase (46-116) U/L Troponin I 1.552 H* (0.00-0.056) ng/mL NT-Pro-B Natriuret Pep (0-125) pg/mL Total Protein (6.4-8.2) g/dl Albumin (3.4-5.0) g/dl Globulin gm/dL Albumin/Globulin Ratio (1-2) Influenza Type A RNA (NEGATIVE) Influenza Type B RNA (NEGATIVE) SARS-CoV-2 RNA (NEVIN) (NEGATIVE) Meds: Medications Discontinued Medications Generic Name Dose Route Start Last Admin Trade Name Freq PRN Reason Stop Dose Admin Aspirin 324 mg 04/18/21 23:22 04/18/21 23:36 Aspirin 81 Mg Tab.Chew PO 04/18/21 23:23 324 mg ONETIME STA Administration Furosemide 20 mg 04/18/21 23:23 04/18/21 23:36 Furosemide 20 Mg/2 Ml Vial IVPUSH 04/18/21 23:24 20 mg ONETIME STA Administration Levofloxacin/Dextrose 750 mg/ 150 mls @ 100 mls/hr 04/18/21 23:22 04/18/21 23:37 Premix IV 04/19/21 00:51 100 mls/hr ONETIME STA Administration - Re-Assessments/Exams Free Text/Narrative Re-Assessment/Exam: 04/18/21 20:57 As above, the patient was hospitalized 6 weeks ago for pneumonia, and was COVID- 19 negative at that time, then hospitalized 3 weeks ago for an intracranial hemorrhage that did not require surgery. He states that he has had a cough, productive of yellowish sputum, along with congestion, for more than a year, and upper back pain for many years, but now presents the ED for a fever of 101 degrees at home, and dyspnea, even at rest, since this afternoon. He has a temperature of 100.7, with an oxygen saturation of 94%. On examination, he has primarily expiratory rhonchi throughout his lung kim, which may obscure crackles. No wheezing or prolonged expiratory phase. I have ordered a work-up and includes numerous blood tests, including 2 sets of blood cultures, a chest x-ray, a swab for the SARS-CoV-2 virus and influenza A + B viruses, and an ECG. 04/18/21 22:57 Two-view chest radiograph reviewed. There is cardiomegaly, but no pulmonary vascular congestion or pleural effusions to suggest decompensated CHF. No focal infiltrate. No pneumothorax. Sternotomy wires and cardiac oracio noted. Formal read per the Radiologist pending. The patient's CBC is remarkable for leukocytosis of 49.29, but with 0% bandemia. His H/H is modestly depressed at 9.9/31.6, with thrombocytopenia of 82,000. His CMP is remarkable for an anion gap slightly elevated at 18.0, but with a bicarbonate normal at 23. His BUN/Cr are elevated at 36/2.0, with hyperglycemia of 235, and the remainder of his CMP being unremarkable. His magnesium level is within normal limits at 1.8. His lactic acid level is within normal limits at 1.7. His troponin is elevated at 0.140. His pro-BNP is elevated at 6570. His D-dimer is within normal limits at 0.50. Review of prior labs finds that the patient's BUN/Cr were 32/2.2 on 03/13/2021. At that time, his troponin was undetectably low, and his pro-BNP 1530. 04/18/21 23:07 Test results discussed with the patient and his and daughter. I am concerned about the patient's elevated troponin, which we cannot blame on his renal insufficiency, as his renal function was worse on 03/13/2021, yet his troponin was undetectably low. The patient prefers [facility]. 04/18/21 23:23 Case discussed with Liberty at [facility] at 23:08. Case then discussed with Dr. Hernandez, Drama Critic on-call at [facility], at 23:12. He recommended that we treat the patient with a single full-strength aspirin, 20 mg of IV Lasix, and treat for empiric infection with IV Levaquin. He recommended that we transfer the patient to their facility, however, Liberty informed us that no beds are available at this time. Dr. Hernandez said that he knows that one of his patients will be discharged in the morning, and felt that it would be safe to keep the patient here in the ED overnight, since he is not having any chest pain. Liberty, or her replacement, will notify us in the morning when a bed becomes available. At that time, I, or my replacement, will need to discuss the case with the Hospitalist engagement liaison. The chest x-ray images were pushed to [facility] at 23:21. 04/18/21 23:33 Notified by Radha LOMAX that the patient meets sepsis criteria, due, in part, to his leukocytosis and thrombocytopenia, however, in my clinical opinion, the patient does NOT have sepsis, and a fluid bolus is contraindicated, indeed, we are going to gently diurese him. That being said, as above, blood cultures were already drawn, and the patient will be treated with a broad-spectrum antibiotic. The patient's troponin was drawn at 21:25. I will order a repeat troponin to be drawn now. 04/19/21 00:42 The patient's repeat troponin has risen to 1.552. 04/19/21 00:47 Case discussed with Liberty at [facility] at 00:44. Case then discussed with Dr. Hernandez at 00:47. He stated that once elevated, the height of the troponin does not change the situation, therefore he recommended that we continue our current plan of keeping the patient here in the ED until he can be transferred in the morning. 04/19/21 07:00 We have not yet heard back from [facility]. Case discussed with Dr. Silva, and care of the patient turned over to him at this time, for change of shift. Departure - Departure Condition: Good - Discharge Information *PRESCRIPTION DRUG MONITORING PROGRAM REVIEWED*: Not Applicable *COPY OF PRESCRIPTION DRUG MONITORING REPORT IN PATIENT MECHE: Not Applicable Sepsis Event Note (ED) - Evaluation Sepsis Screening Result: No Definite Risk - Focused Exam Vital Signs: Vital Signs Temp Pulse Resp BP Pulse Ox 04/19/21 11:34 61 13 109/70 95 04/19/21 10:30 36.9 C - My Orders Last 24 Hours: My Active Orders 04/18/21 20:54 Blood Culture x2 Reflex Set [OM.PC] Stat 04/18/21 21:25 CULTURE BLOOD [BC] Stat CULTURE BLOOD [BC] Stat - Assessment/Plan Last 24 Hours: My Active Orders 04/18/21 20:54 Blood Culture x2 Reflex Set [OM.PC] Stat 04/18/21 21:25 CULTURE BLOOD [BC] Stat CULTURE BLOOD [BC] Stat
[2021-04-18 21:57] LABS: CORONAVIRUS COVID-19 NAA NEGATIVE (NEGATIVE)
[2021-04-18] MEDS ORDERED: Levofloxacin/Dextrose 5%-Water 750 MG in Premix Bag 1 BAG IV STA (23:22)
[2021-04-18] MEDS ORDERED: Aspirin 81 MG Tab.Chew PO STA (23:22)
[2021-04-18] MEDS ORDERED: Furosemide 20 MG/2 ML VIAL IVPUSH STA (23:23)
--- NOTE | 2021-04-19 07:51 | CR ---
Chest: 2 views of the chest were obtained. Comparison: Prior chest x-ray of 03/13/21. Heart is enlarged. Pulmonary vessels are minimally congested. Prior sternotomy is noted. Lungs otherwise are clear. Bony structures show nothing acute. Impression: 1. Findings suspicious for mild CHF. Diagnostic code #3
== END 2021-04-19 11:49 | disposition home or self-care (01) ==
LOC: JD.ED 20:02 → SUPCPDRO 20:02 → JD.ED 04-19 11:49
DX: C91.10 Chronic lymphocytic leukemia of B-cell type not having achieved remission (principal); I13.0 Hypertensive heart and chronic kidney disease with heart failure and stage 1 through stage 4 chronic kidney disease, or unspecified chronic kidney disease; E11.22 Type 2 diabetes mellitus with diabetic chronic kidney disease; N18.9 Chronic kidney disease, unspecified; I50.9 Heart failure, unspecified; R79.89 Other specified abnormal findings of blood chemistry; I25.10 Atherosclerotic heart disease of native coronary artery without angina pectoris; E78.00 Pure hypercholesterolemia, unspecified; E66.9 Obesity, unspecified; J44.9 Chronic obstructive pulmonary disease, unspecified; Z79.899 Other long term (current) drug therapy; Z79.4 Long term (current) use of insulin; Z20.822 Contact with and (suspected) exposure to COVID-19; Z68.37 Body mass index [BMI] 37.0-37.9, adult
CPT/HCPCS: 0240U; 36415; 71046; 80053; 82947; 83605; 83735; 83880; 84484; 85007; 85027; 85379; 87040; 93005; 96365; 96366; 96375; 99285; A9270; J1940; J1956; 93010

== ENCOUNTER 2021-05-18 11:34 | Emergency (ER) | payer OTHER, MEDICARE, BC ==
[2021-05-18] MEDS ORDERED: Sodium Chloride 0.9% 10 ML Syringe FLUSH PRN (11:47)
--- NOTE | 2021-05-18 12:21 | CR ---
Chest: 2 views of the chest were obtained. Comparison: Prior chest x-ray of 04/18/21. Increasing density is seen within the right middle lobe. Heart remains enlarged. Lungs otherwise are clear. Prior sternotomy is noted. No acute osseous abnormality is appreciated. No pulmonary vascular congestion is seen. Impression: 1. Findings suspicious for atelectasis within the right middle lobe. Difficult to exclude small area of pneumonia. 2. Stable cardiomegaly with no pulmonary vascular congestion. Diagnostic code #3
--- NOTE | 2021-05-18 13:41 | EDM.PDOC ---
ED HPI GENERAL MEDICAL PROBLEM - General Chief Complaint: Respiratory Problem Stated Complaint[facility] Time Seen by Provider: 05/18/21 11:41 Source of Information: Reports: Patient, Family, RN Notes Reviewed History Limitations: Reports: No Limitations - History of Present Illness INITIAL COMMENTS - FREE TEXT/NARRATIVE: Patient is a 70-year-old male presenting to the emergency department after being [place] here [place] [facility]. He reports increasing shortness of breath with exertion over the last few weeks as well as increasing lower extremity edema.. He has had a 16 pound weight gain over the last 2 weeks with 6 of it being over the last few days. He does have a history of CLL and had his monthly chemotherapy infusion on Friday of this week. He reports that he felt increasingly weak and short of breath after this but it has improved slightly since that time. He is also been running elevated blood sugars. States they were in the 300-400 range earlier this week but have been gradually coming down. This morning his blood sugar was 198. His dose of diuretics was increased on Friday of this week to 40 mg of Lasix twice daily as well as metolazone from 5 mg daily to 10 mg daily. Patient and his family report that he has not had much of an increase in urine output despite the increase in diuretics. Patient is also being treated for pneumonitis with Augmentin and Atavaquone which was prescribed by his infectious disease specialist. He denies any chest pain, fever, chills, nausea, or vomiting. Denies shortness of breath at rest, however reports that with exertion oxygen saturation dropped as low as 78% on room air. Vital signs on triage were found to be stable. Temperature 97.2, pulse 61, blood pressure 123/68, respiratory 20, oxygen 94% on room air. - Related Data Allergies Allergy/AdvReac Type Severity Reaction Status Date / Time No Known Allergies Allergy Verified 05/18/21 11:45 Home Meds: Home Meds Colesevelam [Welchol] 1,875 mg PO BID 05/02/14 [History] Flaxseed Oil [Flax Oil] 1,300 mg PO DAILY 05/02/14 [History] Furosemide [Lasix] 40 mg PO DAILY 05/02/14 [History] Glucosamine [Glucosamine Sulfate] 1,500 mg PO DAILY 05/02/14 [History] Metoprolol Tartrate [Lopressor] 50 mg PO BID 05/02/14 [History] Acalabrutinib [Calquence] 100 mg PO BID 03/13/21 [History] Albuterol Sulfate [Proair Digihaler] 2 puff IH Q6HR PRN 03/13/21 [History] Budesonide/Formoterol [Symbicort 160-4.5 MCG] 2 puff INH BID 03/13/21 [History] Famotidine 20 mg PO BEDTIME 03/13/21 [History] Insulin Glarg,Human.Rec.Analog [Lantus] 22 unit SUBCUT DAILY 03/13/21 [History] Montelukast [Singulair] 10 mg PO BEDTIME 03/13/21 [History] Sodium Bicarbonate 1,300 mg PO BID 03/13/21 [History] Sodium Zirconium Cyclosilicate [Lokelma] 10 gm PO DAILY 03/13/21 [History] Vardenafil HCl 20 mg PO ASDIRECTED PRN 03/13/21 [History] metFORMIN [Glucophage XR] 500 mg PO DAILY 03/13/21 [History] Atovaquone 1,500 mg PO DAILY 04/19/21 [History] allopurinoL [Zyloprim] 100 mg PO DAILY 04/19/21 [History] Albuterol Sulfate 3 ml INH Q6H PRN 05/18/21 [History] Cholecalciferol (Vitamin D3) [Vitamin D3] 125 mcg PO DAILY 05/18/21 [History] Rosuvastatin Calcium 10 mg PO BEDTIME 05/18/21 [History] Semaglutide [Ozempic] 0.5 mg SUBCUT WEEKLY 05/18/21 [History] Tiotropium [place] [Spiriva Respimat] 5 mcg INH Q24H 05/18/21 [History] Vitamin E 400 units PO DAILY 05/18/21 [History] calcitrioL [Rocaltrol] 0.25 mcg PO ASDIRECTED 05/18/21 [History] glipiZIDE [Glucotrol] 10 mg PO BIDAC 05/18/21 [History] Past Medical History HEENT History: Reports: Other (See Below) Other HEENT History: wisdom teeth removed Cardiovascular History: Reports: CAD, Heart Failure, High Cholesterol, Hypertension Respiratory History: Reports: COPD Genitourinary History: Reports: Chronic Renal Insuffiency Musculoskeletal History: Reports: Back Pain, Chronic Neurological History: Reports: Other (See Below) Other Neuro History: brain bleed about 1 and 1/2 months ago due to blood thinner; march 13. eliquis and plavix and asa. is not on blood thnners anymore Endocrine/Metabolic History: Reports: Diabetes, Type II, Obesity/BMI 30+ Hematologic History: Reports: Other (See Below) Immunologic History: Reports: Other (See Below) (Agammaglobulinemia) Oncologic (Cancer) History: Reports: Leukemia, Squamous Cell Carcinoma - Infectious Disease History Infectious Disease History: Reports: Chicken Pox, Measles, Rubella - Past Surgical History HEENT Surgical History: Reports: Oral Surgery Cardiovascular Surgical History: Reports: Coronary Artery Bypass, Coronary Artery Stent, Other (See Below) Other Cardiovascular Surgeries/Procedures: 4 bypass 2011 Musculoskeletal Surgical History: Reports: ORIF Other Musculoskeletal Surgeries/Procedures:: bilateral ankles Oncologic Surgical History: Reports: Other (See Below) Other Oncologic Surgeries/Procedures: CLL Social & Family History - Family History Family Medical History: No Pertinent Family History - Tobacco Use Tobacco Use Status *Q: Never Tobacco User Second Hand Smoke Exposure: No - Caffeine Use Caffeine Use: Reports: Coffee, Soda - Recreational Drug Use Recreational Drug Use: No - Living Situation & Occupation Living situation: Reports: , with Spouse Occupation: Retired ED ROS GENERAL - Review of Systems Review Of Systems: See Below Constitutional: Reports: Weakness. Denies: Fever, Chills HEENT: Reports: No Symptoms Respiratory: Reports: No Symptoms ED EXAM, GENERAL - Physical Exam Exam: See Below Exam Limited By: No Limitations General Appearance: Alert, WD/WN, No Apparent Distress Respiratory/Chest: No Respiratory Distress, No Accessory Muscle Use, Chest Non- Tender, Decreased Breath Sounds (Throughout) Cardiovascular: Normal Peripheral Pulses, Regular Rate, Rhythm, No Gallop, No JVD, No Murmur, No Rub, Other (3+ peripheral edema to bilateral lower extremities extending to the lower abdomen) GI/Abdominal: Normal Bowel Sounds, Soft, Non-Tender, No Organomegaly, No Distention, No Abnormal Bruit, No Mass Neurological: Alert, Oriented, CN II-XII Intact, Normal Cognition, Normal Gait, Normal Reflexes, No Motor/Sensory Deficits Psychiatric: Normal Affect, Normal Mood Skin Exam: Warm, Dry, Intact, Normal Color, No Rash #1 Interpretation EKG Date: 05/18/21 Time: 11:52 Rhythm: Other (Junctional rhythm) Rate (Beats/Min): 59 QRS: RBBB ST-T: Depressed (Anterior leads) QT: Normal EKG Interpretation Comments: Junctional rhythm at 59 Intraventricular conduction delay, right bundle branch block with left anterior fascicular block ST depression anterior leads No change from EKG on 04/18/[address] Lazaro CLEMONS Course - Vital Signs Last Recorded V/S: Last Vital Signs Temp 97.3 F 05/18/21 17:45 Pulse 64 05/18/21 17:45 Resp 20 05/18/21 17:45 BP 111/71 05/18/21 17:45 Pulse Ox 97 05/18/21 17:45 - Orders/Labs/Meds Labs: Laboratory Tests 05/18/21 05/18/21 05/18/21 Range/Units 11:45 11:45 11:45 WBC 77.53 H* (4.23-9.07) K/mm3 RBC 2.84 L (4.63-6.08) M/mm3 Hgb 9.2 L (13.7-17.5) gm/dl Hct 29.9 L (40.1-51.0) % MCV 105.3 H (79.0-92.2) fl MCH 32.4 H (25.7-32.2) pg MCHC 30.8 L (32.2-35.5) g/dl RDW Std Deviation 62.0 H (35.1-43.9) fL Plt Count 56 L (163-337) K/mm3 MPV 10.1 (9.4-12.3) fl Neut % (Auto) Cancelled Lymph % (Auto) Cancelled [place] % (Auto) Cancelled Eos % (Auto) Cancelled Baso % (Auto) Cancelled Neut # (Auto) Cancelled Lymph # (Auto) Cancelled [place] # (Auto) Cancelled Eos # (Auto) Cancelled Baso # (Auto) Cancelled Neutrophils % (Manual) 5 L (40-60) % Band Neutrophils % 3 (0-10) % Lymphocytes % (Manual) 82 H (20-40) % Atypical Lymphs % 7 % Monocytes % (Manual) 0 L (2-10) % Eosinophils % (Manual) 0 L (0.8-7.0) % Basophils % (Manual) 0 L (0.2-1.2) Myelocytes % 3 Nucleated RBCs 3.0 % Differential Comment See note Manual Slide Review Cancelled Platelet Estimate Marked dec Plt Morphology Comment Normal Polychromasia 2+ moderate Anisocytosis 2+ moderate Macrocytosis 2+ moderate RBC Morph Comment Not Reportable Sodium 131 L (136-145) mEq/L Potassium 5.0 (3.5-5.1) mEq/L Chloride 95 L (98-107) mEq/L Carbon Dioxide 23 (21-32) mEq/L Anion Gap 18.0 H (5-15) BUN 92 H D (7-18) mg/dL Creatinine 4.0 H D (0.7-1.3) mg/dL Est Cr Clr Drug Dosing 17.78 mL/min Estimated GFR (MDRD) 15 (>60) mL/min BUN/Creatinine Ratio 23.0 H (14-18) Glucose 260 H (70-99) mg/dL Calcium 8.2 L (8.5-10.1) mg/dL Total Bilirubin 2.1 H (0.2-1.0) mg/dL AST 69 H (15-37) U/L ALT 81 H (16-63) U/L Alkaline Phosphatase 401 H (46-116) U/L Troponin I 0.202 H* (0.00-0.056) ng/mL C-Reactive Protein 1.4 H* (<1.0) mg/dL NT-Pro-B Natriuret Pep 8380 H (0-125) pg/mL Total Protein 6.8 (6.4-8.2) g/dl Albumin 3.2 L (3.4-5.0) g/dl Globulin 3.6 gm/dL Albumin/Globulin Ratio 0.9 L (1-2) Urine Color (Yellow) Urine Appearance (Clear) Urine pH (5.0-8.0) Ur Specific [place] (1.005-1.030) Urine Protein (Negative) Urine Glucose (UA) (Negative) Urine Ketones (Negative) Urine Occult Blood (Negative) Urine Nitrite (Negative) Urine Bilirubin (Negative) Urine Urobilinogen (0.2-1.0) Ur Leukocyte Esterase (Negative) U Hyaline Cast (Auto) (0-5) /lpf Urine RBC (0-5) /hpf Urine WBC (0-5) /hpf Ur Epithelial Cells (0-5) /hpf Ur Renal Epithelial Cell (0-5) /hpf Amorphous Sediment (NOT SEEN) /hpf Urine Bacteria (FEW) /hpf Urine Mucus (FEW) /hpf SARS-CoV-2 RNA (NEVIN) (NEGATIVE) 05/18/21 05/18/21 Range/Units 12:40 14:15 WBC (4.23-9.07) K/mm3 RBC (4.63-6.08) M/mm3 Hgb (13.7-17.5) gm/dl Hct (40.1-51.0) % MCV (79.0-92.2) fl MCH (25.7-32.2) pg MCHC (32.2-35.5) g/dl RDW Std Deviation (35.1-43.9) fL Plt Count (163-337) K/mm3 MPV (9.4-12.3) fl Neut % (Auto) Lymph % (Auto) [place] % (Auto) Eos % (Auto) Baso % (Auto) Neut # (Auto) Lymph # (Auto) [place] # (Auto) Eos # (Auto) Baso # (Auto) Neutrophils % (Manual) (40-60) % Band Neutrophils % (0-10) % Lymphocytes % (Manual) (20-40) % Atypical Lymphs % % Monocytes % (Manual) (2-10) % Eosinophils % (Manual) (0.8-7.0) % Basophils % (Manual) (0.2-1.2) Myelocytes % Nucleated RBCs % Differential Comment Manual Slide Review Platelet Estimate Plt Morphology Comment Polychromasia Anisocytosis Macrocytosis RBC Morph Comment Sodium (136-145) mEq/L Potassium (3.5-5.1) mEq/L Chloride (98-107) mEq/L Carbon Dioxide (21-32) mEq/L Anion Gap (5-15) BUN (7-18) mg/dL Creatinine (0.7-1.3) mg/dL Est Cr Clr Drug Dosing mL/min Estimated GFR (MDRD) (>60) mL/min BUN/Creatinine Ratio (14-18) Glucose (70-99) mg/dL Calcium (8.5-10.1) mg/dL Total Bilirubin (0.2-1.0) mg/dL AST (15-37) U/L ALT (16-63) U/L Alkaline Phosphatase (46-116) U/L Troponin I (0.00-0.056) ng/mL C-Reactive Protein (<1.0) mg/dL NT-Pro-B Natriuret Pep (0-125) pg/mL Total Protein (6.4-8.2) g/dl Albumin (3.4-5.0) g/dl Globulin gm/dL Albumin/Globulin Ratio (1-2) Urine Color Yellow (Yellow) Urine Appearance Clear (Clear) Urine pH 6.0 (5.0-8.0) Ur Specific [place] 1.020 (1.005-1.030) Urine Protein 1+ H (Negative) Urine Glucose (UA) Negative (Negative) Urine Ketones Negative (Negative) Urine Occult Blood 1+ H (Negative) Urine Nitrite Negative (Negative) Urine Bilirubin Negative (Negative) Urine Urobilinogen 0.2 (0.2-1.0) Ur Leukocyte Esterase Negative (Negative) U Hyaline Cast (Auto) 0-5 (0-5) /lpf Urine RBC 0-5 (0-5) /hpf Urine WBC Not seen (0-5) /hpf Ur Epithelial Cells 0-5 (0-5) /hpf Ur Renal Epithelial Cell 0-5 (0-5) /hpf Amorphous Sediment Few H (NOT SEEN) /hpf Urine Bacteria Moderate H (FEW) /hpf Urine Mucus Not seen (FEW) /hpf SARS-CoV-2 RNA (NEVIN) Negative (NEGATIVE) Meds: Medications Discontinued Medications Generic Name Dose Route Start Last Admin Trade Name Kurtq PRN Reason Stop Dose Admin Sodium Chloride 10 ml 05/18/21 11:47 05/18/21 11:45 Sodium Chloride 0.9% 10 Ml Syringe FLUSH 10 ml ASDIRECTED PRN Administration Keep Vein Open - Re-Assessments/Exams Free Text/Narrative Re-Assessment/Exam: Patient is a 70-year-old male presenting to the emergency department after being here sent here from the [place] for increasing shortness of breath, increasing peripheral edema, and a 16 pound weight gain over the last 2 weeks. He does have a history of CLL and is currently receiving chemotherapy infusions. Last infusion was on Friday of this week. He denies any chest pain or shortness of breath at rest. On exam, patient does have 3+ pitting edema to the bilateral lower extremities with edema extending up to the level of the abdomen. Lung sounds are diminished with occasional scattered rhonchi. No expiratory wheezes. Patient is currently on 40 mg of Lasix twice daily as well as metolazone 10 mg daily. Reports seeing little increase in his urine output despite increases in his dose of diuretics. I have ordered blood work, urinalysis, EKG, and chest x-ray. I will hold off on Lasix IV until lab work available. 05/18/21 1325 Hematology is significant for WBC elevated at 77.53, hemoglobin low at 9.2, platelets low at 56, sodium 131, chloride 95, anion gap 18.0, BUN 92, creatinine 4.0, glucose 260, 2.1, AST 69, ALT 81, alkaline phosphatase 401, troponin 0 0.202, CRP 1.4, proBNP 8380. Urinalysis is negative for infection, Covid is negative. Results of labs are significant interval change from blood work completed at [facility] 9 days ago. At that time his BUN was found to be 31, creatinine 1.9, WBCs 44.9, BNP 1952. I have placed a call to [facility] in [facility] and am waiting for callback from one call. Patient is an acute on chronic renal failure which is likely why he is not responding to diuretics. Patient is maintaining oxygen saturations of 94% on room air. Vital signs have remained stable. I am not ordering IV Lasix at this time as I feel it will be of little benefit and may cause further damage to the kidneys. 05/18/21 1415 Case was discussed with Dr. Larios, hospitalist at [facility]. He is excepted the patient for transfer with a direct admission. He did not recommend that we give Lasix at this time. They do not currently have a bed open, however they are in the process of cleaning rooms and will call us when a bed is available and patient will be sent by ambulance. Vital signs remained stable. Patient is currently eating lunch. Departure - Departure Time of Disposition: 14:15 Disposition: DC/Tfer to [facility] 02 Condition: Fair Clinical Impression: CLL (chronic lymphocytic leukemia), Elevated brain natriuretic peptide (BNP) level, Elevated troponin I level, Peripheral edema Acute on chronic renal failure Qualifiers: Acute renal failure type: unspecified Chronic kidney disease stage: unspecified stage Qualified Code(s): N17.9 - Acute kidney failure, unspecified; N18.9 - Chronic kidney disease, unspecified Dyspnea Qualifiers: Dyspnea type: dyspnea on exertion Qualified Code(s): R06.00 - Dyspnea, unspecified - Discharge Information Referrals: Kenisha Gloria MD [Primary Care Provider] - Forms: ED Department Discharge Sepsis Event Note (ED) - Evaluation Sepsis Screening Result: No Definite Risk
== END 2021-05-18 17:45 ==
LOC: JD.ED 11:34
DX: R06.02 Shortness of breath (principal); C95.10 Chronic leukemia of unspecified cell type not having achieved remission; R60.0 Localized edema; N17.9 Acute kidney failure, unspecified; I13.0 Hypertensive heart and chronic kidney disease with heart failure and stage 1 through stage 4 chronic kidney disease, or unspecified chronic kidney disease; E11.22 Type 2 diabetes mellitus with diabetic chronic kidney disease; N18.9 Chronic kidney disease, unspecified; I25.10 Atherosclerotic heart disease of native coronary artery without angina pectoris; E66.9 Obesity, unspecified; Z68.30 Body mass index [BMI] 30.0-30.9, adult; Z95.1 Presence of aortocoronary bypass graft; Z20.822 Contact with and (suspected) exposure to COVID-19
CPT/HCPCS: 36415; 71046; 71046-26; 80053; 81001; 83880; 84484; 85007; 85027; 86140; 93005; 99285-25; U0002